=== PATIENT | female | born 1995 | race Caucasian/White ===

== ENCOUNTER 2019-11-11 22:27 | Outpatient (CLI) | payer OTHER ==
[~2019-11-11] VITALS: Ht 157.5 cm; Wt 98.2 kg
[2019-11-11 22:53] VITALS: BP 135/78
[2019-11-11 23:36] VITALS: BP 132/75
--- NOTE | 2019-11-11 23:48 | IPNPDOC ---
Text Note Date of Service The patient was seen on 11/11/19. NOTE Outpatient 23yo JAYJAY 02/17/2020. Presents @ 26w1d with complaints of "feeling off, blurry vision and elevated blood pressure at home 148-150/87-90" Pt sees Cricket Maynard. Has appt next week @ [facility] with Dr Conway. States labs were drawn last week at [facility], all normal Hx significant for 2 previous sections. First for protracted labor in [place], 8#6. 2nd for "elevated blood pressure. Didn't respond to HTN meds" 9#7 [facility]. Denies major medical problems. Reports dental surgery and tonsillectomy Denies tobacco, ETOH or drug use. NAD, normotensive here Fetus active, difficult to trace. 145 Mild lower extremity edema PNP, preeclampsia panel, urine ratio, CMP ordered VS,Fishbone, I+O VS, Fishbone, I+O Vital Signs Date Time Temp Pulse Resp B/P (MAP) Pulse Ox O2 Delivery O2 Flow Rate FiO2 11/11/19 22:53 97.6 102 135/78 (97) Pina Lawton CNM Nov 11, 2019 23:48
[2019-11-11 23:51] VITALS: BP 124/67
[2019-11-12 00:06] VITALS: BP 125/69
[2019-11-12 00:21] VITALS: BP 125/68
[2019-11-12 00:22] LABS: CREATININE,RANDOM URINE 40.2 MG/DL; TOTAL PROTEIN,RANDOM URINE 9.5 MG/DL (0.0-12.0)
[2019-11-12 00:27] LABS: BASO % 0.3 % (0.0-1.0); EOS # 0.1 10^3/uL (0.0-0.5); EOS % 0.4 % (0.0-3.0); HEMATOCRIT 35.4 % (36.0-47.0); HEMOGLOBIN 11.8 g/dl (12.0-15.5); LYMPH # 2.4 10^3/uL (1.5-5.0); LYMPH % 19.8 % (24.0-44.0); MEAN CORPUSCULAR HEMOGLOBIN 26.5 pg (27.0-33.0); MEAN CORPUSCULAR HGB CONC 33.3 g/dl (32.0-36.5); MEAN CORPUSCULAR VOLUME 79.4 fl (80.0-96.0); MONO # 0.6 10^3/uL (0.0-0.8); MONO % 4.6 % (0.0-5.0); NEUTROPHILS # 8.9 10^3/uL (1.5-8.5); NEUTROPHILS % 74.5 % (36.0-66.0); PLATELET COUNT, AUTOMATED 217 10^3/uL (150-450); RED BLOOD COUNT 4.46 10^6/uL (4.00-5.40); WHITE BLOOD COUNT 11.9 10^3/uL (4.0-10.0)
[2019-11-12 00:36] VITALS: BP 125/72
[2019-11-12 00:49] LABS: ALBUMIN 2.9 GM/DL (3.2-5.2); ALT/SGPT 12 U/L (12-78); BILIRUBIN,TOTAL 0.2 MG/DL (0.2-1.0); BLOOD UREA NITROGEN 6 MG/DL (7-18); CALCIUM LEVEL 8.3 MG/DL (8.5-10.1); CARBON DIOXIDE LEVEL 25 MEQ/L (21-32); CHLORIDE LEVEL 107 MEQ/L (98-107); CREATININE FOR GFR 0.52 MG/DL (0.55-1.30); GLOMERULAR FILTRATION RATE > 60.0 (>60); GLUCOSE, FASTING 78 MG/DL (70-100); LDH LACTATE DEHYDROGENASE 107 U/L (84-246); POTASSIUM SERUM 3.6 MEQ/L (3.5-5.1); SODIUM LEVEL 138 MEQ/L (136-145); TOTAL PROTEIN 6.2 GM/DL (6.4-8.2); URIC ACID 2.9 MG/DL (2.6-6.0)
--- NOTE | 2019-11-12 00:59 | IPNPDOC ---
Text Note Date of Service The patient was seen on 11/12/19. NOTE Outpatient Has remained normotensive Cat I tracing PreE panel WNL. Urine ratio 0.24 PNP pending Discharged home. Instructed to drink adequate fluids, small protein rich snack/m eals Enc to bring BP cuff to office to confirm appropriate use and size. VS,Fishbone, I+O VS, Fishbone, I+O Laboratory Tests 11/12/19 00:19 Vital Signs Date Time Temp Pulse Resp B/P (MAP) Pulse Ox O2 Delivery O2 Flow Rate FiO2 11/12/19 00:36 99 125/72 (89) 11/11/19 22:53 97.6 Pina Lawton CNM Nov 12, 2019 00:59
[2019-11-12 01:14] LABS: RUBELLA IgG QUALITATIVE IMMUNE (IMMUNE)
[2019-11-12 01:43] LABS: HIV 1&2 SCREEN CENTAUR NEGATIVE (NEGATIVE)
[2019-11-12 08:53] LABS: CHLAMYDIA DNA AMPLIFICATION NEGATIVE (NEGATIVE); GC DNA AMPLIFICATION NEGATIVE (NEGATIVE)
== END 2019-11-12 01:00 | disposition home or self-care (01) ==
LOC: M LDO 22:27
PROVIDERS: ATTEND Advanced Practice Midwife
DX: O26.892 Other specified pregnancy related conditions, second trimester (principal); R03.0 Elevated blood-pressure reading, without diagnosis of hypertension; O99.89 Other specified diseases and conditions complicating pregnancy, childbirth and the puerperium; H53.8 Other visual disturbances; Z3A.26 26 weeks gestation of pregnancy
CPT/HCPCS: 36415; 82565; 82570; 83615; 84156; 84550; 85025; 86762; 86780; 86803; 86850; 87086; 87340; 87389; 87491; 87591; G0378; G0463

== ENCOUNTER → 2019-11-18 | Outpatient (REF) | payer OTHER | LOC: M PLALAB 09:25 | PROVIDERS: ATTEND Obstetrics & Gynecology | DX: O34.211 Maternal care for low transverse scar from previous cesarean delivery (principal); Z3A.00 Weeks of gestation of pregnancy not specified ==

== ENCOUNTER → 2019-11-29 | Outpatient (CLI) | payer OTHER | LOC: M LAB 06:41 | PROVIDERS: ATTEND Advanced Practice Midwife | DX: Z36.89 Encounter for other specified antenatal screening (principal) ==

== ENCOUNTER 2019-12-07 23:52 | Outpatient (CLI) | payer OTHER ==
[~2019-12-07] VITALS: Ht 157.5 cm; Wt 101.6 kg
[2019-12-07] MEDS ORDERED: PRENTAB9 PO (23:56)
[2019-12-07] MEDS ORDERED: VITATAB74 PO (23:57)
[2019-12-08 00:08] VITALS: BP 138/69
[2019-12-08] MEDS ORDERED: ACET500T15 PO (00:22)
[2019-12-08] MEDS ORDERED: TERCONAZOLE-7 VAGINAL CREAM PV SCH (01:15)
--- NOTE | 2019-12-08 08:20 | IPN ---
DATE: 12/08/2019 Melody is a 23-year-old, 3, para 2-0-0-2. She is at 29-4/7 weeks gestation, expected date of confinement (EDC) of 02/19/2020 based on last menstrual period and confirmed by first trimester ultrasound. She presents to labor and delivery today with a report of some spotting with a wipe. She does report some mild intermittent cramping. She denies leakage of fluid. The fetus has been active. Her care was initiated with a home navigating officer with a transfer of care to [facility] in the third trimester. OBSTETRICAL HISTORY: August 2015: 39 weeks gestation, delivery, 7 pound 8 ounce male due to protracted labor. March 2018: 39 weeks gestation, repeat section, 6 pound 7 ounce male, history of gestational hypertension with that . OBSTETRIC LABS: Antibody screen negative. Gonorrhea and chlamydia negative. She had an abnormal gestational diabetic screening of 155 with a normal 3-hour glucose tolerance test. She did undergo some pre-eclamptic labs that were normal. Hepatitis C antibody negative. Syphilis nonreactive. Rubella immune. HIV negative. Hepatitis B negative. Spot urine normal. PAST MEDICAL HISTORY: No history of gestational hypertension. SURGERIES: section x2, tonsillectomy and wisdom tooth extraction. FAMILY HISTORY: Calcium deficiency. SOCIAL HISTORY: She is . Her is deployed at this time. She is a nonsmoker. She denies alcohol and drug use. No history of any sexually transmitted infections. ALLERGIES: PENICILLIN G. OBJECTIVE: Temperature 97, pulse 98, blood pressure (BP) is 138/69. heart rate is 125 with moderate variability, positive accelerations, negative decelerations. There is no pattern of contractions. Sterile Speculum Exam External: Vulva very red, swollen. There is some petechiae and some scant pink bleeding on the labia majora. There is a very thick, white curd-like vaginal discharge charge vaginally as well as externally. The patient is very uncomfortable with the exam. Wet prep positive for yeast and pseudohyphae. ASSESSMENT: Intrauterine at 29-4/7 weeks. heart rate is category one. Candidiasis of the vulva and vagina. PLAN: Terazol 7 to start tonight. Discharge to home. She is to keep her next appointment. I reviewed signs and symptoms of labor, kick counts and access to care. The patient has had her questions answered and is agreeable to plan.
== END 2019-12-08 01:25 | disposition home or self-care (01) ==
LOC: M LDO 23:52
PROVIDERS: ATTEND Advanced Practice Midwife
DX: O26.853 Spotting complicating pregnancy, third trimester (principal); O23.593 Infection of other part of genital tract in pregnancy, third trimester; B37.3 Candidiasis of vulva and vagina; Z3A.29 29 weeks gestation of pregnancy
CPT/HCPCS: 59025; G0378; G0463

== ENCOUNTER 2019-12-25 18:30 | Outpatient (CLI) | payer OTHER ==
[~2019-12-25] VITALS: Ht 157.5 cm; Wt 102.4 kg
[~2019-12-25 18:30] MED LIST: ACET500T15 PO; PRENTAB9 PO; VITATAB74 PO
[2019-12-25 18:47] VITALS: BP 130/81
[2019-12-25 19:34] VITALS: BP 133/77
== END 2019-12-25 19:00 | disposition home or self-care (01) ==
LOC: M LDO 18:30
PROVIDERS: ATTEND Obstetrics & Gynecology
DX: O36.8130 Decreased fetal movements, third trimester, not applicable or unspecified (principal); Z3A.32 32 weeks gestation of pregnancy
CPT/HCPCS: 59025; 76815; G0378; G0463

== ENCOUNTER → 2019-12-28 | Outpatient (REF) | payer OTHER ==
[2019-12-28 10:35] LABS: HEMATOCRIT 38.1 % (36.0-47.0); HEMOGLOBIN 11.9 g/dl (12.0-15.5); MEAN CORPUSCULAR HEMOGLOBIN 24.6 pg (27.0-33.0); MEAN CORPUSCULAR HGB CONC 31.2 g/dl (32.0-36.5); MEAN CORPUSCULAR VOLUME 78.9 fl (80.0-96.0); PLATELET COUNT, AUTOMATED 223 10^3/uL (150-450); RED BLOOD COUNT 4.83 10^6/uL (4.00-5.40); WHITE BLOOD COUNT 10.5 10^3/uL (4.0-10.0)
[2019-12-28 10:45] LABS: ALT/SGPT 12 U/L (12-78); BILIRUBIN,TOTAL 0.2 MG/DL (0.2-1.0); CREATININE FOR GFR 0.51 MG/DL (0.55-1.30); GLOMERULAR FILTRATION RATE > 60.0 (>60); LDH LACTATE DEHYDROGENASE 122 U/L (84-246)
== END ==
LOC: M PLALAB 08:10
PROVIDERS: ATTEND Obstetrics & Gynecology
DX: O13.3 Gestational [pregnancy-induced] hypertension without significant proteinuria, third trimester (principal)
CPT/HCPCS: 36415; 59025; 82247; 82565; 82570; 83615; 84156; 84450; 84460; 84550; 85027; G0463

== ENCOUNTER → 2019-12-29 | Outpatient (CLI) | payer OTHER ==
--- NOTE | 2019-12-30 01:53 | REP ---
Clinical: Anatomical evaluation. Comparison: 09/30/2019 . Findings: Examination demonstrates a single live intrauterine in cephalic presentation. motion is identified by technologist. Placenta is noted anterior and grade I I without evidence for placenta previa or abruption. Amniotic fluid volume is normal. Cervix measures 3.9 cm in length and appears closed. No evidence for nuchal cord. Gestational age by current measurements 34 weeks 0 days. FHR equals 130 beats per minute. BPD 8.0 cm 32 weeks 2 days HC 31.2 cm 34 weeks 6 days AC 31.1 cm 35 weeks 0 days FL 6.5 cm 33 weeks 5 days HL 5.9 cm 34 weeks 3 days HC/AC ratio 1.00 Estimated weight 2468 grams ( 86 percentile). Amniotic fluid index: 17.7 cm Impression: single live advanced gestation in cephalic presentation demonstrating appropriate estimated weight.
== END ==
LOC: M WHC 15:02
PROVIDERS: ATTEND Obstetrics & Gynecology
DX: O13.3 Gestational [pregnancy-induced] hypertension without significant proteinuria, third trimester (principal); Z3A.34 34 weeks gestation of pregnancy

== ENCOUNTER → 2020-01-24 | Outpatient (CLI) | payer OTHER ==
[~2020-01-24] MED LIST changes: +CALCTAB38 PO; +DHA100CA PO; +DOCU100C16 PO; +IBUP80TA PO; +OXYC1TAB23 PO
== END ==
LOC: M LABSMTC 09:40
PROVIDERS: ATTEND Anesthesiology
DX: Z01.818 Encounter for other preprocedural examination (principal); Z11.59 Encounter for screening for other viral diseases
CPT/HCPCS: C9803; U0003

== ENCOUNTER → 2020-01-25 | Outpatient (REF) | payer OTHER | LOC: M SFHCWAGY 17:43 | PROVIDERS: ATTEND Obstetrics & Gynecology | DX: Z3A.36 36 weeks gestation of pregnancy (principal) ==

== ENCOUNTER 2020-01-27 05:12 | Inpatient (IN) | payer OTHER ==
[~2020-01-27] VITALS: Ht 154.9 cm; Wt 104.6 kg
[2020-01-27] VITALS (9 sets, daily range): BP systolic 113–143; BP diastolic 41–96
[~2020-01-27 05:12] MED LIST changes: -DOCU100C16 PO; -IBUP80TA PO; -OXYC1TAB23 PO
[2020-01-27] MEDS ORDERED: BICITRA 30ML SOLN UDC PO ONE (05:30)
[2020-01-27] MEDS ORDERED: ceFAZolin SOD 2 GM in IV 1 EA IV ONE (05:30)
[2020-01-27] MEDS ORDERED: LR 1,000 ML IV ONE (05:30)
[2020-01-27] MEDS ORDERED: LR 1,000 ML IV SCH ×3 (05:30→10:15)
[2020-01-27] MEDS ORDERED: MORPHINE PRES-FREE INJ 10 MG/10 ML VIAL (J2274) As Ordered ONE (07:35)
[2020-01-27] MEDS ORDERED: ONDANSETRON 4MG/2ML VIAL As Ordered ONE ×2 (07:36→10:43)
[2020-01-27] MEDS ORDERED: OXYTOCIN INJ 10 UNITS/ML VIAL (J2590) As Ordered ONE ×2 (07:36→07:37)
[2020-01-27] MEDS ORDERED: ePHEDrine SULFATE 25 MG/5 ML(5MG/ML) SYRINGE As Ordered ONE (07:36)
[2020-01-27] MEDS ORDERED: PHENYLephrine HCL 500 MCG/5 ML (100MCG/ML) SYRINGE (J2370) As Ordered ONE (07:36)
[2020-01-27] MEDS ORDERED: dexameTHASONE 4 MG/ML 1ML VIAL (J1100 PER 1MG) As Ordered ONE ×3 (07:36→07:41)
[2020-01-27] MEDS ORDERED: KETOROLAC 60MG 2ML VIAL As Ordered ONE (07:36)
[2020-01-27 07:50] LABS: HEMATOCRIT 36.1 % (36.0-47.0); HEMOGLOBIN 11.3 g/dl (12.0-15.5); MEAN CORPUSCULAR HEMOGLOBIN 23.6 pg (27.0-33.0); MEAN CORPUSCULAR HGB CONC 31.3 g/dl (32.0-36.5); MEAN CORPUSCULAR VOLUME 75.5 fl (80.0-96.0); PLATELET COUNT, AUTOMATED 216 10^3/uL (150-450); RED BLOOD COUNT 4.78 10^6/uL (4.00-5.40); WHITE BLOOD COUNT 11.7 10^3/uL (4.0-10.0)
[2020-01-27] MEDS ORDERED: METOCLOPRAMIDE INJ 10MG/2ML VIAL (J2765 PER 1) IV PRN ×2 (08:52→11:00)
[2020-01-27] MEDS ORDERED: diphenhydrAMINE 50MG/ML VIAL (J1200) IV PRN (08:52)
[2020-01-27] MEDS ORDERED: NALBUPHINE HCL 10 MG/ML AMP (J2300) IV PRN (08:52)
[2020-01-27] MEDS ORDERED: NALOXONE INJ 0.4MG/1ML VIAL (J2310 PER 1MG) IV PRN ×2 (08:52)
[2020-01-27] MEDS ORDERED: ONDANSETRON 4MG/2ML VIAL IV PRN ×3 (08:52→10:15)
[2020-01-27] MEDS ORDERED: OXYTOCIN DRIP 30 UNITS in IV 1 EA IV SCH (10:05)
[2020-01-27] MEDS ORDERED: OXYC1TAB23 PO (10:08)
[2020-01-27] MEDS ORDERED: DOCU100C16 PO (10:09)
[2020-01-27] MEDS ORDERED: IBUP80TA PO (10:09)
[2020-01-27] MEDS ORDERED: RHOGAM 300 MCG (1500 IU) INJ (J2790) IM SCH (10:15)
[2020-01-27] MEDS ORDERED: ACETAMINOPHEN 500 MG TAB PO PRN (10:15)
[2020-01-27] MEDS ORDERED: PERCOCET 5MG/325MG TAB PO PRN (10:15)
[2020-01-27] MEDS ORDERED: PROMETHAZINE 25 MG TAB PO PRN (10:15)
[2020-01-27] MEDS ORDERED: ONDANSETRON 4 MG TAB PO PRN (10:15)
[2020-01-27] MEDS ORDERED: fentaNYL 100 MCG/2 ML INJECTION (J3010) IV PRN (10:15)
[2020-01-27] MEDS ORDERED: MEASLES,MUMPS,RUBELLA VACCINE INJ (MMR-II) (90707) SC SCH (10:15)
[2020-01-27] MEDS ORDERED: METOCLOPRAMIDE INJ 10MG/2ML VIAL (J2765 PER 1) As Ordered ONE (11:01)
[2020-01-27] MEDS ORDERED: OXYTOCIN 30 UNITS IN 0.9% NaCl 500ML IV BAG (J2590) As Ordered ONE (12:01)
[2020-01-27] MEDS: KETOROLAC 30 MG/ML 1ML VIAL IV SCH ×2 (15:52→22:29)
[2020-01-27] MEDS: DOCUSATE SODIUM 100 MG CAP PO SCH (22:30)
[2020-01-28 02:00] VITALS: BP 110/60
[2020-01-28] MEDS: KETOROLAC 30 MG/ML 1ML VIAL IV SCH (04:03)
[2020-01-28 06:00] VITALS: BP 107/53
[2020-01-28] MEDS: DOCUSATE SODIUM 100 MG CAP PO SCH ×2 (08:19→20:48)
[2020-01-28] MEDS: PRENATAL VITAMINS CHEWABLE TABLET PO SCH (08:19)
[2020-01-28 08:34] LABS: HEMATOCRIT 30.2 % (36.0-47.0); HEMOGLOBIN 9.4 g/dl (12.0-15.5); MEAN CORPUSCULAR HGB CONC 31.1 g/dl (32.0-36.5); PLATELET COUNT, AUTOMATED 195 10^3/uL (150-450); RED BLOOD COUNT 3.92 10^6/uL (4.00-5.40); WHITE BLOOD COUNT 10.1 10^3/uL (4.0-10.0)
[2020-01-28] MEDS: IBUPROFEN 800 MG TAB PO SCH ×2 (11:39→20:48)
[2020-01-28 18:00] VITALS: BP 131/65
[2020-01-28 22:00] VITALS: BP 139/80
[2020-01-28] MEDS: PERCOCET 5MG/325MG TAB PO PRN (23:45)
[2020-01-29 02:27] VITALS: BP 134/76
[2020-01-29] MEDS: IBUPROFEN 800 MG TAB PO SCH ×2 (04:00→11:49)
[2020-01-29 05:37] VITALS: BP 142/84
[2020-01-29] MEDS: PRENATAL VITAMINS CHEWABLE TABLET PO SCH (08:54)
[2020-01-29] MEDS: PERCOCET 5MG/325MG TAB PO PRN (08:54)
[2020-01-29] MEDS: DOCUSATE SODIUM 100 MG CAP PO SCH (08:55)
[2020-01-29 18:00] VITALS: BP 131/69
--- NOTE | 2020-01-31 17:32 | DSES ---
DATE OF ADMISSION: 01/27/2020 DATE OF DISCHARGE: 01/29/2020 24-year-old, (G) 3, para (P) 2 female, at 37 weeks gestation, presents for repeat section, tubal ligation. The indication for delivery less than 39 weeks is gestational hypertension. She has a history of two prior cesareans. HOSPITAL COURSE: The patient was admitted on 01/27/2020. She had repeat section and tubal sterilization for a 7 pound 2 ounce . There were no complications. Her postoperative course is unremarkable. She adequate return of bladder and bowel function. Her postoperative hemoglobin was 9.5 g/dL. She was deemed stable for discharge on postoperative day #2. ADMISSION DIAGNOSIS: at 37 weeks, gestational hypertension, prior section times two. DISCHARGE DIAGNOSIS: Delivered. PROCEDURE: Repeat section and bilateral tubal ligation. DISPOSITION: Patient will followup with Dr. Coronado in 2 weeks. Instructions were reviewed.
== END 2020-01-29 12:40 | disposition home or self-care (01) | DRG 785 ==
LOC: M LDI 05:12 → M OBS 12:22
PROVIDERS: ADMIT Obstetrics & Gynecology; ATTEND Obstetrics & Gynecology
PROC: 0UB70ZZ Excision of Bilateral Fallopian Tubes, Open Approach (ICD-10-PCS; 2020-01-27)
PROC: 10D00Z1 Extraction of Products of Conception, Low, Open Approach (ICD-10-PCS; principal; 2020-01-27 07:30)
DX: O34.211 Maternal care for low transverse scar from previous cesarean delivery (principal); Z37.0 Single live birth; Z3A.37 37 weeks gestation of pregnancy; Z30.2 Encounter for sterilization; O13.4 Gestational [pregnancy-induced] hypertension without significant proteinuria, complicating childbirth

== ENCOUNTER 2021-02-16 21:21 | Emergency (ER) | payer OTHER ==
[~2021-02-16] VITALS: Ht 154.9 cm; Wt 96.7 kg
[~2021-02-16 21:21] MED LIST changes: +DOCU100C16 PO; +IBUP80TA PO; +OXYC1TAB23 PO
[2021-02-16 21:23] VITALS: BP 173/89
== END 2021-02-16 22:30 | disposition left against medical advice (07) ==
LOC: M ED 21:21
DX: Z53.21 Procedure and treatment not carried out due to patient leaving prior to being seen by health care provider (principal)